=== PATIENT | female | born 1990 | race Caucasian/White ===

== ENCOUNTER 2017-03-10 12:50 | Outpatient (CLI) | payer OTHER ==
[2017-03-10] MEDS ORDERED: Iopamidol 370 76% 100 ML VIAL ONE (13:57)
== END 2017-03-10 12:51 | disposition home or self-care (01) ==
LOC: BICCT 12:50
PROVIDERS: ATTEND Surgery
DX: R10.11 Right upper quadrant pain (principal); E27.8 Other specified disorders of adrenal gland; Z90.49 Acquired absence of other specified parts of digestive tract
CPT/HCPCS: 74160

== ENCOUNTER 2018-05-27 23:15 | Emergency (ER) | payer OTHER | END 2018-05-28 00:58 | disposition left against medical advice (07) | LOC: ERS 23:15 | DX: Z53.21 Procedure and treatment not carried out due to patient leaving prior to being seen by health care provider (principal) ==